=== PATIENT | female | born 1995 | race Caucasian/White ===

== ENCOUNTER 2018-11-06 01:59 | Emergency (ER) | payer OTHER ==
[~2018-11-06] VITALS: Ht 139.7 cm; Wt 49.1 kg
[2018-11-06 04:00] VITALS: BP 104/59
== END 2018-11-06 04:07 | disposition home or self-care (01) ==
LOC: M ED 01:59
DX: F41.0 Panic disorder [episodic paroxysmal anxiety] (principal)